=== PATIENT | female | born 1960 | race Caucasian/White ===

== ENCOUNTER → 2017-09-12 | Day surgery (SDC) | payer OTHER ==
[~2017-09-12] VITALS: Ht 177.8 cm; Wt 58.1 kg
--- NOTE | 2017-09-12 08:34 | Operative Report ---
Operative/Inv Procedure Report Surgery Date: 09/12/17 Name of Procedure: Open reduction internal fixation left distal radius fracture with volar locking plate and screws. Pre-Operative Diagnosis: Left displaced extra-articular distal radius fracture. Post-Operative Diagnosis: Same. Estimated Blood Loss: scant Surgeon/Tank Storage Supervisor: Hina TERAN,Sarkis/PORFIRIO Luz Anesthesia: moderate sedation, block Monitors: EKG/oxygen saturation/blood pressure. IV Fluids: Lactated Ringer's. Implants: Arthrex DVR components: 1) Left narrow DVR plate 2) Locking and cortical screws on shaft 3) Locking screws distal end of plate. Urine Output: None. Drains: None. Specimens: None. Microbiology: None. Tourniquet: 29 minutes @250 mmHg. Complications: None known. Condition: Stable. Operative Indication: The patient is a 57-year-old [id number] female [employer] worker who sustained a trip and fall at work last week landing on an outstretched left hand. She had immediate pain and deformity of the left wrist. She went to an urgent care facility after the injury at which time her wrist was splinted and she was referred for orthopedic evaluation and management of the injury. She was seen in the office where we did confirm presence of a displaced extra- articular left transverse distal radial metaphyseal fracture with apex volar angulation and shortening. At that time we did discuss the risks and benefits and expected outcomes of attempting a closed reduction under hematoma block with prolonged splinting and serial monitoring or displacement of the fracture with x -rays. We did discuss difficulties in achieving an adequate hematoma block given at the fracture was already more than 24 hours old. We did also discuss the risks and benefits and expected outcomes of operative intervention with formal ORIF of the distal radius fracture using volar locking plate and screw fixation. All of the patient's questions were answered at length. She did wish to move forward with surgery and surgical consent was obtained. Operative/Procedure Note Note: The patient underwent administration of a left-sided regional block in the preop staging area. The patient was then brought to the operating room and placed on the operating table in supine position. Moderate sedation was then administered by the anesthesia team.. A dose of IV antibiotics were given for infection prophylaxis. All bony prominences were well-padded. Both legs were placed in to calf compression sleeves to hopefully cut down the risk of lower extremity venous pooling and blood clot formation in propagation from the lower extremities. A well-padded tourniquet was applied to the proximal portion of the left arm. The patient's sugar short arm splint was removed. The elbow and wrist and digits were manipulated to loosen things up. We did confirm that we were still able with manipulation to get some motion to the distal radial fracture fragments. The left upper extremity was then prepped and draped in the usual sterile fashion. The skin at the patient's left volar wrist was marked for a volar approach to the distal radius. This included marking the skin for a longitudinal skin incision centered over the palpable underlying FCR tendon. This skin marking ran from the volar wrist skin flexion creases distally extending in a proximal direction for about 6 cm more or less. We did also marked the skin coming obliquely in a proximal ulnar to distal radial direction across the volar skin flexion crease in case we needed to extend the surgical approach distally. After the skin was marked the extremity was exsanguinated and the pneumatic tourniquet was inflated to a pressure of 250 mm mercury. The skin incision was created sharply with a scalpel. Sharp dissection was continued down through the skin and subcutaneous tissues. We identified the radial vessels once the radial side of the FCR tendon and isolated them and protect them throughout the case. We incised the volar leaf of the FCR tendon sheath to expose the underlying FCR tendon. This allowed us to translocate the FCR tendon in an ulnar direction moving it out of the way. We then continued dissection sharply now through the dorsal leaf of the FCR tendon sheath. After this we performed some blunt fingertip dissection and placed retractors into the wound. We were now down to the pronator quadratus which was reflected in subperiosteal fashion in a radial to ulnar direction. Hohmann retractors were placed off of the ulnar side of the distal radius to retract the pronator quadratus. We now had visualization of the volar surface of the distal radial shaft and metaphysis and watershed line for the joint capsule. The fracture was comminuted and still displaced and unstable. We opened the fracture site to clean up the fracture margins themselves and to clean out debris and early healing tissue from the fracture margins so that we would be able to achieve an adequate reduction of the distal radius. With the fracture fragments opened we irrigated and curetted and used rongeurs to accomplish this. We next performed a manipulation of multiple fracture fragments simultaneously while applying longitudinal traction through the wrist and volar flexing the wrist to get acceptable alignment of the fracture fragments and to restore overall radial height and length and articular tilt as best as possible. We next selected an Arthrex volar distal radius plate of appropriate dimensions medial to lateral and applied that to the volar surface of the distal radius. We pinned this provisionally with olive-tipped guidewire was to hold the plate provisionally in place. We next fixed the plate provisionally to the distal radial shaft working through the slotted hole in the long axis of the plate using a cortical compression screw. We adjusted the plate position and orientation under fluoroscopic control and then we tightened down the screw to fix the plate securely in apposition against the volar cortex of the distal radial shaft. We next began fixation of the plate distally using a combination of partially threaded and fully threaded locking screws working through the targeting guide. We had previously placed some K wires at the distal end of the plate to help with provisional fixation. Fluoroscopic imaging of the wrist in the lateral projection confirmed that these K wires were not in the joint and therefore all screws to be placed in the distal end of the plate would be proximal to this and clearly out of the joint as well. We filled all of the holes in the distal end of the plate with screws of appropriate length. We did also place a couple of locking screws into the radial styloid through the targeting system as well. Once we were satisfied with distal fixation of the plate we fixed the plate further proximally with a couple of additional cortical screws. All the screws were tightened down. Final fluoroscopic images were obtained confirming that we achieved acceptable fracture reduction, alignment, and length and that we had achieved acceptable position and fixation of the hardware. These images were saved for hard copy. Our attention was now directed towards closure. The wound was copiously irrigated multiple times with saline. The pronator quadratus was allowed to fall down in position over the distal radial plate but was not formally repaired. The soft tissues were irrigated again and then allowed to fall into normal loose approximation. The soft tissue repair itself consisted of placement of multiple 3-0 Vicryl sutures in the superficial subcutaneous tissues placed in simple buried interrupted fashion. The skin margins were then approximated using a running 3-0 Prolene placed in subcuticular fashion. Mastisol was applied about the wound margins. Steri-Strips were applied to augment the subcuticular skin repair. The wound was washed and dried. Adaptic dressing was placed over the Steri-Strip line followed by sterile gauze dressings. Additional fluffed gauze dressings were placed over and about the distal forearm and wrist and carpus with additional fluffed gauze placed between the fingers. This was held in place with gauze wrap. We next applied a thin layer of web roll and then we applied a fiberglass short arm volar splint running from the distal palmar crease distally to the upper forearm proximally. This was held in place with Hollis bandages and allowed to set up with the wrist in neutral position. The left upper extremity was placed into a Jose Miguel pillow for elevation. The patient was awakened from general anesthesia and transferred to the stretcher and brought to the recovery room stable condition having tolerated the procedure well. Findings: 1) Acceptable fracture reduction, alignment, and length achieved. 2) Acceptable hardware position and fixation achieved. Discharge Disposition: PACU
== END ==
LOC: STS 01:24
DX: S52.552A Other extraarticular fracture of lower end of left radius, initial encounter for closed fracture (principal); W18.39XA Other fall on same level, initial encounter; Y92.89 Other specified places as the place of occurrence of the external cause; Y99.8 Other external cause status
CPT/HCPCS: C1713; C9290; J0131; J0690; J2250; J3490